=== PATIENT | female | born 2000 ===

== ENCOUNTER → 2023-04-01 | Outpatient (CLI) | payer OTHER | END | disposition home or self-care (01) | LOC: LAB 11:07 → LAB SHORT 11:07 | DX: Z34.03 Encounter for supervision of normal first pregnancy, third trimester (principal) | CPT/HCPCS: 87081; 87150 ==

== ENCOUNTER 2023-04-24 13:37 | Inpatient (IN) | payer OTHER ==
[~2023-04-24] VITALS: Ht 157.5 cm; Wt 54.5 kg
[2023-04-24] VITALS (31 sets, daily range): BP systolic 76–159; BP diastolic 44–97
[2023-04-24] MEDS ORDERED: PRENATAL TABLE1 EAC2 PO (16:14)
[2023-04-24 16:36] LABS: BASOPHILS ABSOLUTE AUTO 0.03 K/mm3 (0.00-0.23); BASOPHILS PERCENT AUTO 0 % (0-2); EOSINOPHILS PERCENT AUTO 0 % (0-6); Hematocrit 34.4 % (33.0-51.0); IMMATURE GRAN ABSOLUTE AUTO 0.06 K/mm3 (0.00-0.10); IMMATURE GRAN PERCENT AUTO 0 % (0-1); LYMPHOCYTES ABSOLUTE AUTO 2.06 K/mm3 (0.84-5.20); LYMPHOCYTES PERCENT AUTO 14 % (21-46); MONOCYTES ABSOLUTE AUTO 1.01 K/mm3 (0.16-1.47); MONOCYTES PERCENT AUTO 7 % (4-13); Mean Corpuscular HGB 31.9 pg (26.0-34.0); Mean Corpuscular HGB Conc 34.9 g/dL (31.5-36.5); Mean Corpuscular Volume 92 fL (80-100); Mean Platelet Volume 10.8 fL (9.1-12.4); NEUTROPHILS ABSOLUTE AUTO 12.13 K/mm3 (1.96-9.15); NEUTROPHILS PERCENT AUTO 79 % (41-73); Platelet Count 195 K/mm3 (150-400); RDW Coefficient Variation 12.3 % (11.7-14.2); RDW Standard Deviation 40.5 fL (35.1-46.3); Red Blood Cell Count 3.76 M/mm3 (3.80-5.20); White Blood Cell Count 15.29 K/mm3 (4.00-11.30)
[2023-04-25] VITALS (22 sets, daily range): BP systolic 110–152; BP diastolic 76–124
[2023-04-25 06:41] LABS: Hematocrit 29.4 % (33.0-51.0); Hemoglobin 10.4 g/dL (11.5-16.0); Mean Corpuscular HGB Conc 35.4 g/dL (31.5-36.5); Mean Corpuscular Volume 91 fL (80-100); Mean Platelet Volume 10.8 fL (9.1-12.4); Platelet Count 156 K/mm3 (150-400); RDW Coefficient Variation 12.2 % (11.7-14.2); RDW Standard Deviation 39.6 fL (35.1-46.3); Red Blood Cell Count 3.25 M/mm3 (3.80-5.20); White Blood Cell Count 20.28 K/mm3 (4.00-11.30)
[2023-04-26 00:54] VITALS: BP 124/69
[2023-04-26 04:44] VITALS: BP 124/67
[2023-04-26] MEDS ORDERED: IBUP800 PO (07:23)
[2023-04-26] MEDS ORDERED: DOCU100 PO (07:24)
[2023-04-26 07:42] VITALS: BP 127/82
--- NOTE | 2023-04-26 08:37 | NUR ---
PATIENT EDUCATED ON RUBELLA NON IMMUNE STATUS AND RECCOMENDATION TO RECEIVE MMR VACCINE. PT DECLINES AT THIS TIME.
--- NOTE | 2023-04-26 10:00 | NUR ---
patient given written and verbal dc instructions. will follow up tomorrow here at [facility] at 1400 for ppfu. will also follow up with dr jain within a few weeks. declines needing prescriptions. core referral sent per request. pt dc/d with , fob luzmaria and grandmother chelsey. questions answered and parents verbalize understanding.
== END 2023-04-26 11:08 | disposition home or self-care (01) | DRG 807 ==
LOC: OBS 13:37 → BC 13:37 → OBS 16:06 → BC 16:08
PROVIDERS: ADMIT Family Medicine
PROC: 10907ZC Drainage of Amniotic Fluid, Therapeutic from Products of Conception, Via Natural or Artificial Opening (ICD-10-PCS; principal; 2023-04-25)
PROC: 10E0XZZ Delivery of Products of Conception, External Approach (ICD-10-PCS; 2023-04-25)
PROC: 00HU33Z Insertion of Infusion Device into Spinal Canal, Percutaneous Approach (ICD-10-PCS; 2023-04-25)
PROC: 3E0R3BZ Introduction of Anesthetic Agent into Spinal Canal, Percutaneous Approach (ICD-10-PCS; 2023-04-25)
PROC: 0UQMXZZ Repair Vulva, External Approach (ICD-10-PCS; 2023-04-25)
DX: O70.0 First degree perineal laceration during delivery (principal); Z37.0 Single live birth; Z3A.39 39 weeks gestation of pregnancy; Z79.899 Other long term (current) drug therapy; Z67.40 Type O blood, Rh positive; Z59.00 Homelessness unspecified; Z98.890 Other specified postprocedural states
CPT/HCPCS: 36415; 51702; 59025; 81003; 85025; 85027; 86850; 86900; 86901; A9270; J2590; J7120